=== PATIENT | female | born 1995 | race Caucasian/White ===

== ENCOUNTER 2016-07-04 00:18 | Emergency (ER) | payer MEDICAID, OTHER ==
[2016-07-04] MEDS ORDERED: POLYMYXIN B SULFATE/TMP OPH SOLN (10 ML/ER DISP) OU PRN (02:14)
--- NOTE | 2016-07-04 02:17 | ER Document Report ---
ED General - General Chief Complaint: Drainage from Eye Stated Complaint: EYE IRRITATION Notes: Patient os a 20-year-old female without past medical history, does not wear contacts who presents with 5 days of bilateral conjunctival irritation, yellowish discharge from both eyes as well as eye irritation. Does describe irritation to the eyes as a constant, itching irritation. Nothing improves or worsens or symptoms. Patient is here with their significant other who has the same symptoms. No history of similar symptoms in the past. The patient has not seen a primary care doctor regarding today's concerns. TRAVEL OUTSIDE OF THE [place] IN LAST 30 DAYS: No - Related Data Allergies/Adverse Reactions: No Known Allergies Allergy (Verified 07/04/16 00:34) Past Medical History - General Information source: Patient - Social History Smoking Status: Never Smoker Frequency of alcohol use: None Drug Abuse: None Lives with: Spouse/Significant other Family History: Reviewed & Not Pertinent Renal/ Medical History: Denies: Hx Peritoneal Dialysis Past Surgical History: Reports: Hx Tonsillectomy - Immunizations Hx Diphtheria, Pertussis, Tetanus Vaccination: Yes - with [facility] Review of Systems - Review of Systems Notes: Constitutional: Negative for fever. HENT: Negative for sore throat. Eyes: Positive for bilateral eye discharge and irritation Cardiovascular: Negative for chest pain. Respiratory: Negative for shortness of breath. Gastrointestinal: Negative for abdominal pain, vomiting or diarrhea. Genitourinary: Negative for dysuria. Musculoskeletal: Negative for back pain. Skin: Negative for rash. Neurological: Negative for headaches, weakness or numbness. 10 point ROS negative except as marked above and in HPI. Physical Exam - Vital signs Vitals: Temp Pulse Resp BP Pulse Ox 98.1 F 91 16 117/70 98 07/04/16 00:34 07/04/16 00:34 07/04/16 00:34 07/04/16 00:34 07/04/16 00:34 Interpretation: Normal Notes: PHYSICAL EXAMINATION: GENERAL: Well-appearing, well-nourished and in no acute distress. HEAD: Atraumatic, normocephalic. EYES: Bilateral conjunctival injection, yellow discharge bilaterally. Pupils are equal round reactive. Extraocular motions are intact. No proptosis. No periorbital edema or erythema. ENT: Moist mucous membranes. NECK: Normal range of motion LUNGS: Normal work of breathing HEART: 2+ radial pulses bilaterally EXTREMITIES: no pitting or edema. No cyanosis. NEUROLOGICAL: No focal neurological deficits. Moves all extremities spontaneously and on command. PSYCH: Normal mood, normal affect. SKIN: Warm, Dry, normal turgor, no rashes or lesions noted. Course - Re-evaluation Re-evalutation: 07/04/16 02:15 Patient presents with symptoms most consistent with a viral conjunctivitis. Bilateral eye involvement without purulent drainage. Patient does also have associated upper respiratory symptoms again suggesting a viral etiology of the conjunctivitis. Patient is otherwise very well in appearance, no acute distress , vitals within normal limits. I have discussed with the patient at the bedside for likely viral nature of this presentation but given duration of symptoms will empirically start polytrim. At this time will discharge with return precautions and follow-up recommendations. Verbal discharge instructions given a the bedside and opportunity for questions given. Medication warnings reviewed. Patient is in agreement with this plan and has verbalized understanding of return precautions and the need for primary care follow-up in the next 24-72 hours. - Vital Signs Vital signs: Temp Pulse Resp BP Pulse Ox 98.1 F 91 16 117/70 98 07/04/16 00:34 07/04/16 00:34 07/04/16 00:34 07/04/16 00:34 07/04/16 00:34 Discharge - Discharge Clinical Impression: Conjunctivitis Qualifiers: Conjunctivitis type: acute Acute conjunctivitis type: unspecified Laterality: bilateral Qualified Code(s): H10.33 - Unspecified acute conjunctivitis, bilateral Condition: Good Disposition: HOME, SELF-CARE Additional Instructions: Your eye redness is likely due to a viral infection and should spontaneously resolve in the next 3-4 days. You have been sent home with a prescription for eyedrops which you can start if your symptoms worsen or fail to improve in that time. Please return immediately if you begin to have worsening discomfort in the eyes, you notice spreading redness around the eye, you have changes in vision, or you have any other symptoms that are worrisome to you.
[2016-07-04 02:56] VITALS: BP 120/75
== END 2016-07-04 02:52 | disposition home or self-care (01) ==
LOC: ER 00:18
DX: H10.33 Unspecified acute conjunctivitis, bilateral (principal)
CPT/HCPCS: 99282; J3490

== ENCOUNTER 2019-03-17 18:55 | Emergency (ER) | payer MEDICAID, OTHER ==
--- NOTE | 2019-03-17 20:36 | ER Document Report ---
HPI - HPI Pain Level: 3 Context: 23-year-old female presents the emergency department flulike symptoms. Symptoms started 4 days ago and there are sick contacts house with a positive influenza. I explained to patient that she is outside of the window for Tamiflu but she wants to get tested. Patient states she has cough, sinus pressure, body aches, hot and cold flashes, started becoming nauseated today No abdominal pain, no vomiting/diarrhea/abdominal pain. Patient did not get her flu vaccination this season and she is not a smoker. - REPRODUCTIVE Reproductive: DENIES: : <MARTINE MCNAMARA - Last Filed: 03/17/19 20:30> <PIPER BROCK - Last Filed: 03/18/19 00:18> - HPI Time Seen by Provider: 03/17/19 20:20 Past Medical History - Social History Smoking Status: Never Smoker Chew tobacco use (# tins/day): No Frequency of alcohol use: None Drug Abuse: None Family History: Reviewed & Not Pertinent Patient has suicidal ideation: No Patient has homicidal ideation: No Renal/ Medical History: Denies: Hx Peritoneal Dialysis Past Surgical History: Reports: Hx Tonsillectomy - Immunizations Hx Diphtheria, Pertussis, Tetanus Vaccination: Yes - with [facility] <MARTINE MCNAMARA - Last Filed: 03/17/19 20:30> Vertical Provider Document - CONSTITUTIONAL Notes: PHYSICAL EXAMINATION: Reviewed vital signs and charting by RN GENERAL: Alert, interacts well. No acute distress. HEAD: Normocephalic, atraumatic. EYES: Pupils equal and round. Extraocular movements intact. ENT: Oral mucosa moist, tongue midline. Some mild irritation of the oropharynx secondary to frequent coughing, no tonsillar hypertrophy or exudate, no palatal petechiae; bilateral TMs visualized with no bulging or erythema, right TM with a small amount of fluid behind it NECK: Full range of motion. Trachea midline. LUNGS: Clear to auscultation bilaterally, no wheezes, rales, or rhonchi. No respiratory distress. HEART: Regular rate and rhythm. No murmur EXTREMITIES: Moves all 4 extremities spontaneously. No edema, No cyanosis. PSYCH: Normal affect, normal mood. SKIN: Warm, dry, normal turgor. No rashes or lesions noted. - INFECTION CONTROL TRAVEL OUTSIDE OF THE [place] IN LAST 30 DAYS: No <MARTINE MCNAMARA - Last Filed: 03/17/19 20:30> Course - Re-evaluation Re-evalutation: 03/17/19 20:34 Patient presents with cough, vomiting, diarrhea, and fever at home consistent with a flulike illness. Clinical history and exam is not consistent with an acute bacterial meningitis, encephalitis, pneumonia, there is no evidence of a cellulitis on examination. Patient likewise denies any urinary symptoms. Patient does not have any focal abdominal tenderness to suggest an acute biliary pathology, acute appendicitis, acute mesenteric ischemia, bowel obstruction, bowel, or any other life-threatening acute intra-abdominal pathology as the etiology of the fever and additional symptoms today. Labs are otherwise unremarkable. Patient is tolerated oral intake without difficulty. Vitals within normal limits. 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 Patient wishes to know regardless because she has a young child in the house. Patient was given anticipatory guidance and instructions to include increased fluids, Tylenol 1000 mg every 6 hours, ibuprofen 600 mg every 6 hours with food and/or milk, rest, and to expect to have symptoms for the next several days. Rapid flu is pending. - Vital Signs Vital signs: Temp Pulse Resp BP Pulse Ox 98.4 F 96 16 110/75 96 03/17/19 19:01 03/17/19 19:01 03/17/19 19:01 03/17/19 19:01 03/17/19 19:01 <MARTINE MCNAMARA - Last Filed: 03/17/19 20:30> - Vital Signs Vital signs: Temp Pulse Resp BP Pulse Ox 98.4 F 96 16 110/75 96 03/17/19 19:01 03/17/19 19:01 03/17/19 19:01 03/17/19 19:01 03/17/19 19:01 - Laboratory Laboratory results interpreted by me: 03/17/19 22:43 Labs- Entire Visit 03/17/19 21:05 Influenza A (Rapid) NEGATIVE Influenza B (Rapid) NEGATIVE <PIPER BROCK - Last Filed: 03/18/19 00:18> Discharge <MARTINE MCNAMARA - Last Filed: 03/17/19 20:30> <PIPER BROCK - Last Filed: 03/18/19 00:18> - Discharge Clinical Impression: Flu-like symptoms Condition: Good Disposition: HOME, SELF-CARE Additional Instructions: You not have influenza and have another type of viral illness. There is no treatment that is effective for this diagnosis other than supportive care at home. This includes drinking plenty of fluids, using Tylenol 1000 mg every 6 hours and/or ibuprofen 600 mg every 6 hours with food and/or milk as needed for fever and discomfort, and Zofran as needed for nausea and vomiting. Please follow closely with you primary care physician the next 1-2 days regarding this diagnosis. Return to the emergency department immediately if you began to have persistent vomiting prevents you from being able to keep fluids down for more than 12 hours, you pass out, you began having difficulty breathing, you become confused, or you have any other symptoms that are worrisome to you. Forms: Return to Work
[2019-03-17] MEDS ORDERED: ONDANSETRON ODT 4 MG TAB (6 TAB/ER DISP) PO PRN (20:37)
[2019-03-17] MEDS ORDERED: IBUPROFEN 600 MG TABLET PO ONE (20:37)
[2019-03-17] MEDS ORDERED: ACETAMINOPHEN 325 MG TABLET PO ONE (20:37)
[2019-03-17 22:26] LABS: A TYPE INFLUENZA AG NEGATIVE (NEGATIVE); B INFLUENZA AG NEGATIVE (NEGATIVE)
[2019-03-17 23:03] VITALS: BP 118/68
== END 2019-03-17 22:58 | disposition home or self-care (01) ==
LOC: ER 18:55
DX: R05 Cough (principal); R09.89 Other specified symptoms and signs involving the circulatory and respiratory systems; R52 Pain, unspecified; R11.2 Nausea with vomiting, unspecified; R19.7 Diarrhea, unspecified; R50.9 Fever, unspecified; Z20.828 Contact with and (suspected) exposure to other viral communicable diseases
CPT/HCPCS: 87804; 99283